=== PATIENT | male | born 1980 | race Caucasian/White ===

== ENCOUNTER 2017-03-08 00:42 | Emergency (ER) | payer BC ==
[~2017-03-08] VITALS: Ht 180.3 cm; Wt 95.4 kg
[~2017-03-08 00:42] MED LIST: AMOXICILLIN875 MG PO; AURALGAN14.8 ML RIGHT EAR
[2017-03-08 01:19] LABS: HEMATOCRIT 45.9 % (38.0-50.0); MCH 30.7 PG (29.0-34.0); MCHC 34.2 G/DL (30.0-36.0); MCV 89.6 FL (86-99); MEAN PLAT.VOLUME 10.3 uM^3 (9.0-12.4); PLATELET COUNT 269 K/uL (156-360); RBC DIS.WIDTH-CV 12.7 % (11.8-14.6); RBC DIS.WIDTH-SD 42.2 % (39-53); RED BLOOD COUNT 5.12 M/uL (4.00-5.50); WHITE BLOOD COUNT 14.5 K/uL (4.1-10.2)
[2017-03-08 01:33] LABS: CHLORIDE 103 mEq/L (99-109); POTASSIUM 3.1 mEq/L (3.7-5.4); SODIUM 138 mEq/L (136-147)
[2017-03-08 01:34] LABS: GLUCOSE 116 mg/dL (70-99)
[2017-03-08 01:36] LABS: ANION GAP 13 MEQ/L (2-14)
[2017-03-08 01:38] LABS: GFR ESTIMATE (CALCULATED) > 59 mL/min/; SERUM ETHYL ALCOHOL 172 mg/dL
[2017-03-08 01:39] LABS: PTT 28.4 (25-32); UREA NITROGEN (BUN) 12 mg/dL (9-23)
[2017-03-08 04:30] VITALS: BP 129/79
== END 2017-03-08 04:52 | disposition short-term general hospital (02) ==
LOC: EME 00:42 → TRA 00:42
PROVIDERS: Emergency Medicine
DX: M54.2 Cervicalgia (principal); R68.84 Jaw pain; R51 Headache; H57.13 Ocular pain, bilateral; Y04.8XXA Assault by other bodily force, initial encounter; F17.200 Nicotine dependence, unspecified, uncomplicated
CPT/HCPCS: 70450; 70486; 71010; 72125; 80048; 85027; 85610; 85730; 99281; 99285; G0480; J2270; J7030

== ENCOUNTER 2017-06-16 00:19 | Observation (INO) | payer BC ==
[~2017-06-16] VITALS: Ht 182.9 cm; Wt 90.9 kg
[2017-06-16 01:22] LABS: HEMATOCRIT 43.9 % (38.0-50.0); MCH 30.5 PG (29.0-34.0); MCHC 33.7 G/DL (30.0-36.0); MCV 90.5 FL (86-99); MEAN PLAT.VOLUME 10.2 uM^3 (9.0-12.4); PLATELET COUNT 267 K/uL (156-360); RBC DIS.WIDTH-CV 13.4 % (11.8-14.6); RED BLOOD COUNT 4.85 M/uL (4.00-5.50); WHITE BLOOD COUNT 11.3 K/uL (4.1-10.2)
[2017-06-16 01:39] LABS: CHLORIDE 105 mEq/L (99-109); POTASSIUM 4.2 mEq/L (3.7-5.4); SODIUM 143 mEq/L (136-147)
[2017-06-16 01:41] LABS: GLUCOSE 81 mg/dL (70-99)
[2017-06-16 01:42] LABS: ANION GAP 13 MEQ/L (2-14)
[2017-06-16 01:43] LABS: TOTAL BILIRUBIN 0.1 mg/dL (0.0-1.0)
[2017-06-16 01:44] LABS: SERUM ETHYL ALCOHOL < 10 mg/dL
[2017-06-16 01:45] LABS: ALKALINE PHOSPHATASE 79 IU/L (3-129); GFR ESTIMATE (CALCULATED) > 59 mL/min/
[2017-06-16 01:46] LABS: UREA NITROGEN (BUN) 13 mg/dL (9-23)
[2017-06-16 01:48] LABS: LIPASE 28 U/L (1.0-51.0)
[2017-06-16 05:02] LABS: PHENCYCLIDINE NEGATIVE (25 ng/mL); THC CANNABINOIDS PRESUMPTIVE POSITIVE (50 ng/mL)
[2017-06-16 05:03] LABS: AMPHETAMINE NEGATIVE (500 ng/mL); BARBITURATES NEGATIVE (200 ng/mL); BENZODIAZEPINES PRESUMPTIVE POSITIVE (150 ng/mL); COCAINE PRESUMPTIVE POSITIVE (150 ng/mL); INTERNAL CONTROLS VALID? YES; METHADONE NEGATIVE (200 ng/mL); METHAMPHETAMINE NEGATIVE (500 ng/mL); OPIATES (MORPHINE) NEGATIVE (100 ng/mL); OXYCODONE NEGATIVE (100 ng/mL); PROPOXYPHENE NEGATIVE (300 ng/mL); TRICYCLIC ANTIDEPRESSANTS NEGATIVE (300 ng/mL)
[2017-06-16 05:04] LABS: ADD MEDTOX COMMENT Y
[2017-06-16 05:39] LABS: BENZODIAZEPINES, URINE SCREEN POSITIVE (200 ng/mL)
[2017-06-16 06:01] VITALS: BP 121/66
[2017-06-16 07:23] LABS: TROP-I INTERPRETATION NEGATIVE; TROPONIN-I < 0.01 ng/mL (0.0-0.30)
[2017-06-16 08:21] VITALS: BP 121/67
== END 2017-06-16 10:49 | disposition home or self-care (01) ==
LOC: EME 00:19 → EDOF 04:27 → ENRESERV 04:28 → 5WEST 05:55
PROVIDERS: Emergency Medicine; Hospitalist
DX: R55 Syncope and collapse (principal); R42 Dizziness and giddiness; F14.10 Cocaine abuse, uncomplicated; F12.10 Cannabis abuse, uncomplicated; F13.10 Sedative, hypnotic or anxiolytic abuse, uncomplicated; R07.9 Chest pain, unspecified; Z87.820 Personal history of traumatic brain injury; N20.0 Calculus of kidney; D72.829 Elevated white blood cell count, unspecified; F17.210 Nicotine dependence, cigarettes, uncomplicated; Z82.49 Family history of ischemic heart disease and other diseases of the circulatory system; Z88.6 Allergy status to analgesic agent; Z88.8 Allergy status to other drugs, medicaments and biological substances
CPT/HCPCS: 70450; 70551; 80053; 83690; 84484; 84999; 85027; 93005; 99281; 99285; G0378; G0480; J2310; J3010; J7030

== ENCOUNTER 2017-10-27 19:34 | Inpatient (IN) | payer OTHER ==
[~2017-10-27] VITALS: Ht 182.9 cm; Wt 95.5 kg
[2017-10-27 20:27] LABS: HEMATOCRIT 48.8 % (38.0-50.0); HEMOGLOBIN 16.6 G/DL (12.5-16.6); MCH 30.6 PG (29.0-34.0); MCV 89.9 FL (86-99); PLATELET COUNT 343 K/uL (156-360); RBC DIS.WIDTH-CV 13.6 % (11.8-14.6); RBC DIS.WIDTH-SD 44.6 % (39-53); RED BLOOD COUNT 5.43 M/uL (4.00-5.50); WHITE BLOOD COUNT 11.7 K/uL (4.1-10.2)
[2017-10-27 20:38] LABS: ALBUMIN 4.7 g/dL (3.2-4.8); CHLORIDE 105 mEq/L (99-109); POTASSIUM 4.2 mEq/L (3.7-5.4); SODIUM 143 mEq/L (136-147)
[2017-10-27 20:40] LABS: GLUCOSE 79 mg/dL (70-99); TOTAL PROTEIN 8.2 g/dL (6.4-8.3)
[2017-10-27 20:42] LABS: TOTAL BILIRUBIN 0.2 mg/dL (0.0-1.0)
[2017-10-27 20:43] LABS: SERUM ETHYL ALCOHOL 142 mg/dL
[2017-10-27 20:44] LABS: ALKALINE PHOSPHATASE 80 IU/L (3-129); GFR ESTIMATE (CALCULATED) > 59 mL/min/ (58.99-99999)
[2017-10-27 20:45] LABS: AST (GOT) 20 IU/L (2-34); UREA NITROGEN (BUN) 9 mg/dL (9-23)
[2017-10-27 20:47] LABS: ALT (GPT) 46 IU/L (3-49)
[2017-10-28 00:08] LABS: APPEARANCE CLEAR ((CLEAR)); BILIRUBIN NEGATIVE; BLOOD NEGATIVE; COLOR YELLOW ((YELLOW)); GLUCOSE (STRIP) NEGATIVE; KETONES NEGATIVE; LEUKOCYTES NEGATIVE; NITRITE NEGATIVE; PROTEIN (STRIP) NEGATIVE; SPECIFIC GRAVITY 1.014 (1.000-1.030); UCUL ADDED? NO; UROBILINOGEN 0.2 MG/DL (0.2-1.0)
[2017-10-28 00:16] LABS: AMPHETAMINE NEGATIVE (500 ng/mL); BARBITURATES NEGATIVE (200 ng/mL); BENZODIAZEPINES PRESUMPTIVE POSITIVE (150 ng/mL); BUPRENORPHINE NEGATIVE (10 ng/mL); COCAINE NEGATIVE (150 ng/mL); METHADONE NEGATIVE (200 ng/mL); METHAMPHETAMINE NEGATIVE (500 ng/mL); OPIATES (MORPHINE) NEGATIVE (100 ng/mL); OXYCODONE NEGATIVE (100 ng/mL); PHENCYCLIDINE NEGATIVE (25 ng/mL); PROPOXYPHENE NEGATIVE (300 ng/mL); THC CANNABINOIDS PRESUMPTIVE POSITIVE (50 ng/mL); TRICYCLIC ANTIDEPRESSANTS NEGATIVE (300 ng/mL)
[2017-10-28 01:32] VITALS: BP 141/81
[2017-10-28 06:08] LABS: BENZODIAZEPINES, URINE SCREEN Negative (200 ng/mL)
[2017-10-28 07:42] VITALS: BP 108/51
[2017-10-28] MEDS ORDERED: ZANAFLEX6 MG PO (11:53)
[2017-10-28] MEDS ORDERED: NEURONTIN400 MG PO (11:54)
[2017-10-28] MEDS ORDERED: TRAMADOL HCL50 MG PO (11:54)
[2017-10-28] MEDS ORDERED: PERCOCET 10/1 TABLET PO (11:54)
[2017-10-28] MEDS ORDERED: CYMBALTA60 MG PO (11:56)
[2017-10-28] MEDS ORDERED: PRAZOSIN HCL1 MG PO (11:56)
[2017-10-28] MEDS ORDERED: CYMBALTA30 MG PO (11:56)
== END 2017-10-28 13:27 | disposition home or self-care (01) | DRG 882 ==
LOC: EME 19:34 → 1WEST 23:09 → EDOF 23:09 → ENRESERV 10-28 00:27 → 1WEST 10-28 01:31
PROVIDERS: Emergency Medicine
DX: F43.10 Post-traumatic stress disorder, unspecified (principal); F32.2 Major depressive disorder, single episode, severe without psychotic features; R45.851 Suicidal ideations; F10.10 Alcohol abuse, uncomplicated; Y90.6 Blood alcohol level of 120-199 mg/100 ml; F17.200 Nicotine dependence, unspecified, uncomplicated; Z87.820 Personal history of traumatic brain injury
CPT/HCPCS: 80053; 81003; 84999; 85027; 90837; 99281; 99285; G0480

== ENCOUNTER 2018-03-17 22:23 | Observation (INO) | payer OTHER ==
[~2018-03-17] VITALS: Ht 182.9 cm; Wt 97.7 kg
[~2018-03-17 22:23] MED LIST changes: +CYMBALTA30 MG PO; +CYMBALTA60 MG PO; +NEURONTIN400 MG PO; +PERCOCET 10/1 TABLET PO; +PRAZOSIN HCL1 MG PO; +TRAMADOL HCL50 MG PO; +ZANAFLEX6 MG PO
[2018-03-17 23:10] LABS: CHLORIDE 106 mEq/L (99-109); SODIUM 140 mEq/L (136-147)
[2018-03-17 23:12] LABS: GLUCOSE 93 mg/dL (70-99)
[2018-03-17 23:15] LABS: GFR ESTIMATE (CALCULATED) > 59 mL/min/ (58.99-99999)
[2018-03-17 23:16] LABS: UREA NITROGEN (BUN) 13 mg/dL (9-23)
[2018-03-18 01:17] LABS: HEMATOCRIT 46.1 % (38.0-50.0); HEMOGLOBIN 15.9 G/DL (12.5-16.6); MCH 30.2 PG (29.0-34.0); MCHC 34.5 G/DL (30.0-36.0); MCV 87.5 FL (86-99); RBC DIS.WIDTH-SD 41.6 % (39-53); RED BLOOD COUNT 5.27 M/uL (4.00-5.50); WHITE BLOOD COUNT 11.5 K/uL (4.1-10.2)
[2018-03-18 01:18] LABS: PLAT.SUFFICIENCY ADEQUATE; PLATELET COUNT 293 K/uL (156-360)
[2018-03-18 04:20] LABS: AMPHETAMINE NEGATIVE (500 ng/mL); BARBITURATES NEGATIVE (200 ng/mL); BENZODIAZEPINES PRESUMPTIVE POSITIVE (150 ng/mL); BUPRENORPHINE NEGATIVE (10 ng/mL); COCAINE PRESUMPTIVE POSITIVE (150 ng/mL); METHADONE NEGATIVE (200 ng/mL); METHAMPHETAMINE NEGATIVE (500 ng/mL); OPIATES (MORPHINE) PRESUMPTIVE POSITIVE (100 ng/mL); OXYCODONE NEGATIVE (100 ng/mL); PHENCYCLIDINE NEGATIVE (25 ng/mL); PROPOXYPHENE NEGATIVE (300 ng/mL); THC CANNABINOIDS PRESUMPTIVE POSITIVE (50 ng/mL); TRICYCLIC ANTIDEPRESSANTS NEGATIVE (300 ng/mL)
[2018-03-18 05:23] LABS: BENZODIAZEPINES, URINE SCREEN Negative (200 ng/mL)
[2018-03-18 06:09] VITALS: BP 141/89
[2018-03-18 07:34] VITALS: BP 119/72
[2018-03-18 07:42] LABS: TROP-I INTERPRETATION NEGATIVE; TROPONIN-I < 0.01 ng/mL (0.0-0.30)
[2018-03-18] MEDS ORDERED: NICOTINE PATCH1 EAC1 TD (07:43)
[2018-03-18] MEDS ORDERED: AUGMENTIN875 MG PO (07:44)
[2018-03-18] MEDS ORDERED: DESYREL100 MG PO (09:12)
[2018-03-18] MEDS ORDERED: NEURONTIN600 MG PO (09:13)
[2018-03-18 11:26] LABS: TROP-I INTERPRETATION NEGATIVE; TROPONIN-I < 0.01 ng/mL (0.0-0.30)
[2018-03-18 12:12] VITALS: BP 123/75
== END 2018-03-18 13:24 | disposition home or self-care (01) ==
LOC: EME 22:23 → EDOF 03-18 04:57 → ENRESERV 03-18 05:02 → 4SOUTH 03-18 06:06
PROVIDERS: Emergency Medicine; Physician Assistant
DX: K11.20 Sialoadenitis, unspecified (principal); R55 Syncope and collapse; G89.29 Other chronic pain; F19.10 Other psychoactive substance abuse, uncomplicated; Z83.3 Family history of diabetes mellitus; Z82.5 Family history of asthma and other chronic lower respiratory diseases; F17.210 Nicotine dependence, cigarettes, uncomplicated; Z88.8 Allergy status to other drugs, medicaments and biological substances
CPT/HCPCS: 70486; 70496; 70498; 71046; 80048; 84484; 84999; 85027; 93005; G0378; J0690; J1650; J3010; J7030